=== PATIENT | male | born 1950 | race Caucasian/White ===

== ENCOUNTER 2016-07-06 21:10 | Emergency (ER) | payer OTHER ==
--- NOTE | 2016-07-06 21:43 | EKG Report ---
Test Performed on : 07/06/2016 9:21:59 PM Test Reason : pain Blood Pressure : / mmHG Vent. Rate : 071 BPM Atrial Rate : 071 BPM P-R Int : 162 ms QRS Dur : 094 ms QT Int : 410 ms P-R-T Axes : 023 -04 044 degrees QTc Int : 445 ms Normal sinus rhythm. Normal ECG When compared with ECG of 22-NOV-2012 10:03, Vent. rate has increased BY 24 BPM Incomplete right bundle branch block is no longer present Unconfirmed Result
[2016-07-06 22:04] LABS: MANUAL DIFF NEEDED? NO
[2016-07-06 22:08] LABS: BASO% 0.3 % (0.0-0.8); EOS% 1.1 % (0.0-10.0); IMM GRAN# 0.05 X1000 (0.0-0.04); IMM GRAN% 0.6 % (0.0-0.5); LYMPH# 1.77 X1000 (1.2-3.4); LYMPH% 20.2 % (20.5-51.1); MCH 29.2 PG (27-31); MCHC 33.3 g/dL (33-37); MCV 87.7 FL (81-99); MONO% 6.8 % (1.7-9.3); MPV 9.4 FL (7.4-10.4); PLT 237 X1000 (130-400); RBC 5.13 XMIL (4.7-6.1)
--- NOTE | 2016-07-06 22:20 | PROVIDER DOCUMENTATION ---
HPI-Abdominal Pain/GI Problem - General Source: patient - History of Present Illness-ABD Nature of Presenting Problems: 66 year old M presents to the ED with a cc of indigestion. PT states that he has been belching a lot since this afternoon and had some intermittent nausea, lightheadedness, and tingling. PT does have a hx of GERD. PT states that he takes medication that usually helps but states that it has not tonight. PT states that he has had 4 TUMS with no relief. Pt states that the only thing different he did today was drink a coke. PT states he called PCP and was told to come to the ED for a EKG and to be checked out. Abdominal Pain Onset Location: reports: epigastric Quality of Pain: reports: pressure Severity in ED: reports: mild Onset/Duration: reports: this afternoon Timing: reports: still present Activities at Onset: reports: none Modifying Factors: improves with: nothing Associated Symptoms: reports: nausea, other (belching) Bruising or Bleeding Gums?: No Similar Symptoms Previously?: No Recently seen or treated by another doctor?: No <Reta Flores - Last Filed: 07/07/16 00:29> <Jason Oden - Last Filed: 07/07/16 01:09> - General Chief Complaint: Epigastric Pain Stated Complaint: INDEGESTION Time Seen by Provider: 07/06/16 21:40 Allergies/Adverse Reactions: Patient Allergies Allergy/AdvReac Type Severity Reaction Status Date / Time levofloxacin [From Levaquin] Allergy Severe RASH Verified 06/27/13 15:29 Home Medications: Home Medication List Medication Instructions Recorded Confirmed Last Taken Type EZETIMIBE/SIMVAstatin [Vytorin 1 each PO QAM 11/22/12 06/27/13 11/23/12 05:00 History 10/40 mg] Febuxostat [Uloric] 80 mg PO QHS 11/22/12 06/27/13 11/22/12 21:00 History Furosemide 40 mg PO QAM 11/22/12 06/27/13 11/22/12 08:00 History Losartan/Hydrochlorothiazide 1 each PO QAM 11/22/12 06/27/13 11/23/12 05:00 History [Losartan-Hctz 50-12.5 mg Tab] Nebivolol [Bystolic] 5 mg PO QAM 11/22/12 06/27/13 11/23/12 05:00 History Niacin [Niaspan] 1,000 mg PO QHS 11/22/12 06/27/13 11/22/12 21:00 History Potassium Chloride 40 meq PO QAM 11/22/12 06/27/13 11/23/12 05:00 History Amoxicillin/Pot Clavulanate 1,000 mg PO Q12HR #40 tablet 06/27/13 Unknown Rx [Augmentin] Omeprazole 40 mg PO DAILY 06/27/13 06/27/13 Unknown History Trazodone [Desyrel] 100 mg PO HS PRN PRN 06/27/13 06/27/13 Unknown History Metoclopramide [Reglan] 10 mg PO Q6HR PRN #30 tablet 07/07/16 Unknown Rx Review of Systems - Adult - REVIEW OF SYSTEMS - ADULT Constitutional: denies: chills, fever Eyes: reports: no symptoms reported Ears, Nose, Mouth & Throat: reports: no symptoms reported Cardiovascular: denies: chest pain, palpitations Respiratory: denies: cough, shortness of breath Gastrointestinal: reports: abdominal pain, nausea. denies: diarrhea, vomiting Genitourinary: reports: no symptoms reported Musculoskeletal: reports: no symptoms reported Integumentary: reports: no symptoms reported Neurological: reports: no symptoms reported Psychiatric: reports: no symptoms reported Endocrine: reports: no symptoms reported Hematologic/Lymphatic: reports: no symptoms reported Allergic/Immunologic: reports: no symptoms reported All Other Systems: Reviewed and Negative <Reta Flores - Last Filed: 07/07/16 00:29> Past History - Adult - PAST MEDICAL HISTORY-ADULT Review of Records: reports: Nursing Assessment Review, Medications Reviewed Major Childhood Illnesses: reports: denies history Cardiovascular: reports: CAD, CHF, HTN, hyperlipidemia Respiratory: reports: denies history Gastrointestinal: reports: denies history Genitourinary: reports: denies history Musculoskeletal: reports: denies history Neurological: reports: denies history Endocrine/Immune: reports: denies history Other Conditions: reports: denies history - PRIOR SURGERIES/PROCEDURES Surgical/Procedure History: reports: EGD, colonoscopy, CABG, other - PRIOR HOSPITALIZATIONS Prior Hospitalizations: reports: for other non-related - IMMUNIZATION STATUS Childhood Immunizations: See Nurse Assessment Flu Vaccine: UTD - FAMILY HISTORY Family History: reviewed, not pertinent - SOCIAL HISTORY Smoking: non-smoker Substance Use: none/never Alcohol Use Frequency: never <Reta Flores - Last Filed: 07/07/16 00:29> Physical Exam-General - PHYSICAL EXAM-ADULT Initial Vital Signs Reviewed: Yes - CONSTITUTIONAL General Appearance: appears well, alert, no apparent distress, obese - RESPIRATORY Respiratory: chest non-tender, lungs clear, normal breath sounds - CARDIOVASCULAR Cardiovascular: normal peripheral pulses, regular rate, rhythm, no edema - GASTROINTESTINAL (ABDOMEN) Abdominal Exam: normal bowel sounds, non tender, soft - MUSCULOSKELETAL Extremity: normal inspection, no pedal edema - SKIN Integumentary: normal color, normal turgor, warm/dry - PSYCHIATRIC Psych/Mental Status: normal mood/affect, normal thought content, normal thought process, oriented x 3 <Reta Flores - Last Filed: 07/07/16 00:29> Progress - PLAN OF CARE/RESULTS Progress/Plan/Lab Results: plan of care: labs, medications, EKGs Orders Category Date Time Status CBC WITH DIFF [HEME] Stat Lab 07/06/16 22:00 Completed CK PROFILE [SP CHEM] Stat Lab 07/06/16 00:00 Received CK PROFILE [SP CHEM] Stat Lab 07/06/16 22:00 Completed COMPREHENSIVE METABOLIC PANEL [CHEM] Stat Lab 07/06/16 22:00 Completed LIPASE [CHEM] Stat Lab 07/06/16 22:00 Completed TROPONIN T Stat Lab 07/06/16 00:00 Completed TROPONIN T Stat Lab 07/06/16 22:00 Completed Famotidine [Pepcid] Med 07/06/16 22:26 Discontinued 40 mg PO NOW ONE Metoclopramide [Reglan] Med 07/06/16 22:25 Discontinued 10 mg PO NOW ONE EKG [EKG] Stat Ther 07/06/16 21:41 Draft EKG [EKG] Stat Ther 07/06/16 23:46 Draft Laboratory Tests 07/06/16 07/06/16 07/06/16 00:00 22:00 22:00 WBC RBC Hgb Hct MCV MCH MCHC RDW Std Deviation Plt Count MPV Immature Gran % (Auto) Neut % (Auto) Lymph % (Auto) [place] % (Auto) Eos % (Auto) Baso % (Auto) Immature Gran # (Auto) Neut # (Auto) Lymph # (Auto) [place] # (Auto) Eos # (Auto) Baso # (Auto) Sodium 136 Potassium 3.4 L Chloride 98 Carbon Dioxide 28 Anion Gap 10 BUN 24 H Creatinine 1.3 H Estimated GFR/1.73 m2 55 BUN/Creatinine Ratio 18 Glucose 121 H Calculated Osmolality 277 Calcium 9.9 Total Bilirubin 0.70 AST 20 ALT 27 Alkaline Phosphatase 103 Creatine Kinase 128 Troponin T < 0.010 < 0.010 Total Protein 6.8 Albumin 4.3 Globulin 3.0 Albumin/Globulin Ratio 2.0 Lipase 38 07/06/16 22:00 WBC 8.77 RBC 5.13 Hgb 15.0 Hct 45.0 MCV 87.7 MCH 29.2 MCHC 33.3 RDW Std Deviation 13.2 Plt Count 237 MPV 9.4 Immature Gran % (Auto) 0.6 H Neut % (Auto) 71.0 Lymph % (Auto) 20.2 L [place] % (Auto) 6.8 Eos % (Auto) 1.1 Baso % (Auto) 0.3 Immature Gran # (Auto) 0.05 H Neut # (Auto) 6.22 Lymph # (Auto) 1.77 [place] # (Auto) 0.60 H Eos # (Auto) 0.10 Baso # (Auto) 0.03 Sodium Potassium Chloride Carbon Dioxide Anion Gap BUN Creatinine Estimated GFR/1.73 m2 BUN/Creatinine Ratio Glucose Calculated Osmolality Calcium Total Bilirubin AST ALT Alkaline Phosphatase Creatine Kinase Troponin T Total Protein Albumin Globulin Albumin/Globulin Ratio Lipase Vital Signs - 24 hr 07/06/16 21:19 Temperature 97.9 F Pulse Rate 73 Respiratory 18 Rate Blood Pressure 162/099 O2 Sat by Pulse 98 Oximetry Pt given results and will be d/c home w/o rx to follow up with PCP. Pt verbally understood instructions. PT remained clinically stable throughout the course of the ED stay and will return if symptoms worsen. - EKG 1 Time of EKG reading by physician:: 21:21 EKG Read and Signed by:: Jason Oden EKG Interpretation (*Must complete 3 of following elements*): Normal Rate: 71 Rhythm: NSR [place]: normal 2 Time of EKG reading by physician:: 00:05 EKG Read and Signed by:: Jason Oden EKG Interpretation (*Must complete 3 of following elements*): Normal Rate: 68 Rhythm: NSR [place]: normal Prior EKG Comparison: unchanged from prior <Reta Flores - Last Filed: 07/07/16 00:29> Departure <Reta Flores - Last Filed: 07/07/16 00:29> - Departure Time of Disposition Order: 00:00 Certified Medical Emergency: Emergent <Jason Oden - Last Filed: 07/07/16 01:09> - Departure DIAGNOSIS: GERD (gastroesophageal reflux disease) Qualifiers: Esophagitis presence: without esophagitis Qualified Code(s): K21.9 - Gastro- esophageal reflux disease without esophagitis Disposition: HOME 01 Condition: Fair Additional Instructions: see Dr Hartman tomorrow return to ER if worse try GASX (simethicone) for gas Prescriptions: Metoclopramide [Reglan] 10 mg PO Q6HR PRN #30 tablet PRN Reason: Nausea Referrals: Timoteo Hartman MD [Primary Care Provider] - Attestation - Scribe Verification/Attestation Scribe:: Reta Flores Acting as Scribe for:: Jason Oden Scribe documention review:: This chart was documented by a scribe and accurately reflects the service the provider performed and the decisions made by the provider. <Reta Flores - Last Filed: 07/07/16 00:29> Physician Attestation - Physician Attestation I, the provider, attest to the following statement:: Jason Oden Physician documentation Attestation:: This documentation recorded by the scribe accurately reflects the service I personally performed and the decisions made by me. <Reta Flores - Last Filed: 07/07/16 00:29>
[2016-07-06 22:25] LABS: ALBUMIN 4.3 g/dL (3.5-5.0); CALCIUM 9.9 mg/dL (8.8-10.2); POTASSIUM 3.4 mmol/L (3.5-5.1); TOTAL BILIRUBIN 0.7 mg/dL (0.20-1.00); TOTAL PROTEIN 6.8 g/dL (6.3-8.3)
[2016-07-06] MEDS ORDERED: REGLAN PO ONE (22:25)
[2016-07-06] MEDS ORDERED: PEPCID PO ONE (22:26)
--- NOTE | 2016-07-07 00:24 | EKG Report ---
Test Performed on : 07/07/2016 00:05:40 AM Test Reason : chest pain Blood Pressure : / mmHG Vent. Rate : 068 BPM Atrial Rate : 068 BPM P-R Int : 164 ms QRS Dur : 092 ms QT Int : 418 ms P-R-T Axes : 027 -03 049 degrees QTc Int : 444 ms Normal sinus rhythm. Normal ECG When compared with ECG of 06-JUL-2016 21:21, (Unconfirmed) No significant change was found Unconfirmed Result
[2016-07-07 01:41] VITALS: BP 124/083
== END 2016-07-07 01:41 | disposition home or self-care (01) ==
LOC: P.ED 21:10
DX: K21.9 Gastro-esophageal reflux disease without esophagitis (principal); K30 Functional dyspepsia; R14.2 Eructation; R11.0 Nausea; R42 Dizziness and giddiness; R20.2 Paresthesia of skin; R10.13 Epigastric pain; I25.10 Atherosclerotic heart disease of native coronary artery without angina pectoris; I10 Essential (primary) hypertension; E78.5 Hyperlipidemia, unspecified; E66.9 Obesity, unspecified; Z79.899 Other long term (current) drug therapy; Z95.1 Presence of aortocoronary bypass graft
CPT/HCPCS: 80053; 82550; 83690; 84484; 85025; 93005